=== PATIENT | female | born 1985 | race Two or more races ===

== ENCOUNTER → 2024-11-20 | Outpatient (CLI) | payer OTHER, BC, SELFPAY ==
--- NOTE | 2024-11-20 16:26 | XR_ITS ---
Examination: Tibia-Fibula, left , 2 views Technique: Tibia-fibula AP lateral 2 views Date and time of exam: November 20, 2024 1639 hrs. Indications: Patient fell 3 days ago with injury to the leg, lower leg pain. Findings: No fracture or dislocation No cortical bone destruction Impression: No fracture or dislocation
--- NOTE | 2024-11-20 16:26 | XR_ITS ---
Examination: Left knee 4 views Technique: AP oblique lateral axial left knee 4 views Exam date and time: September 22, 2024 1836 hrs. Indications: Patient fell 3 days ago with injury to the left knee, left knee pain. Findings: No acute fracture No patellar dislocation Partial visualization femoral intramedullary danette Impression: No fracture or dislocation
== END | disposition home or self-care (01) ==
LOC: CDIM 16:15
PROVIDERS: PCP Family Medicine; Referring Provider Physician Assistant; Visit Provider Physician Assistant
DX: S80.912D Unspecified superficial injury of left knee, subsequent encounter (principal); S89.92XD Unspecified injury of left lower leg, subsequent encounter; W19.XXXD Unspecified fall, subsequent encounter
CPT/HCPCS: 73564; 73590

== ENCOUNTER → 2025-04-10 | Outpatient (CLI) | payer OTHER, BC, SELFPAY ==
--- NOTE | 2025-04-10 10:30 | XR_ITS ---
Examination: Breast ultrasound, unilateral, left complete Date and time of exam: April 10, 2025 1120 hours INDICATIONS: Left breast sonogram April 06, 2024 9:00 nodule 12 x 4 x 12 mm Technique: Real-time miranda scale ultrasonographic imaging performed left breast including all 4 quadrants as well as nipple retroareolar and axillary region. Findings: 8:00 cyst 3 x 3 mm 9:00 circumscribed nodule with marker 13 x 11 mm IMPRESSION: BI-RADS Category 2: Benign findings
--- NOTE | 2025-04-10 11:00 | XR_ITS ---
Examination: Diagnostic digital mammography, bilateral Computer aided detection 3-D breast Tomosynthesis, bilateral Date and time of exam: April 10, 2025, 11:39 AM Compared to mammograms dating to June 25, 2023 INDICATIONS: History ultrasound-guided breast biopsy 2 years ago left breast negative Technique: Nonmagnified MLO, CC views of the breasts to been obtained, reconstructed from 3-D Tomosynthesis images. R2 computer aided detection program utilized for evaluation of suspicious masses and/or abnormal calcifications. 3-D Tomosynthesis images obtained. Findings: Scattered areas of fibroglandular density. Benign calcifications. Breast biopsy marker inner lower left breast No suspicious masses Impression: BI-RADS Category 2: Benign findings Recommend yearly follow-up mammography.
== END | disposition home or self-care (01) ==
LOC: CDIM 11:11
PROVIDERS: PCP Family Medicine; Referring Provider Surgery; Visit Provider Surgery
DX: R92.323 Mammographic fibroglandular density, bilateral breasts (principal)
CPT/HCPCS: 76641; 77062; 77066; G0279